=== PATIENT | male | born 1970 | race Caucasian/White ===

== ENCOUNTER 2018-09-19 22:48 | Emergency (ER) | payer OTHER ==
[~2018-09-19] VITALS: Ht 167.6 cm; Wt 114.3 kg
[~2018-09-19 22:48] MED LIST: IBUPROFEN600 MG ORAL
[2018-09-19] MEDS ORDERED: UNOBMED (22:54)
[2018-09-19 22:56] VITALS: BP 152/83
--- NOTE | 2018-09-19 23:09 | Emergency Room Report ---
History of Present Illness General Chief Complaint: Pain Source: Patient Present Illness HPI This is a 48-year-old male with history diabetes high blood pressure. He presents with chief complaint of left foot pain. Onset was started for 2 days now. It was walking and stepped on an unknown even pavement. He turned his foot. Since then his been hurting. Worse with walking. Better with rest and elevation. Did not take anything for. No nausea no vomiting but no fever or chills. Pain is 8 out of 10. No radiation. Allergies: Coded Allergies: No Known Allergies (Unverified , 09/19/18) Patient History Past Medical History: see triage record, old chart reviewed, DM, HTN Past Surgical History: other Pertinent Family History: none Social History: Denies: smoking Immunizations: other Reviewed Nursing Documentation: PMH: Agreed; PSxH: Agreed Nursing Documentation-PMH Past Medical History: No Stated History Hx Cardiac Problems: Yes - HX OF HEART ATTACK X 2 Hx Hypertension: Yes Hx Asthma: Yes Hx COPD: No - BRONCHITIS Hx Diabetes: Yes Review of Systems Eye: Denies: eye pain, blurred vision ENT: Denies: ear pain, nose congestion, throat swelling Respiratory: Denies: cough, shortness of breath Cardiovascular: Denies: chest pain, palpitations Gastrointestinal: Denies: abdominal pain, diarrhea, nausea, vomiting Musculoskeletal: Reports: joint pain; Denies: back pain Skin: Denies: rash Neurological: Denies: headache, numbness Endocrine: Denies: increased thirst, increased urine Hematologic/Lymphatic: Denies: easy bruising All Other Systems: negative except mentioned in HPI Physical Exam Vital Signs Date Time Temp Pulse Resp B/P (MAP) Pulse Ox O2 Delivery O2 Flow Rate FiO2 09/19/18 22:50 97.9 100 16 152/83 94 Room Air vitals normal except for high blood pressure Sp02 EP Interpretation: reviewed, normal General Appearance: well appearing, no apparent distress, alert Head: normocephalic, atraumatic Eyes: bilateral eye PERRL, bilateral eye EOMI ENT: hearing grossly normal, normal pharynx Neck: full range of motion, supple, no meningismus Respiratory: chest non-tender, lungs clear, normal breath sounds Cardiovascular #1: regular rate, rhythm, no murmur Gastrointestinal: normal bowel sounds, non tender, no mass, no organomegaly, no bruit, non-distended Musculoskeletal: back normal, normal range of motion, tender - Tenderness to the base of left fifth metatarsal. Pulses normal Psychiatric: mood/affect normal Skin: warm/dry Medical Decision Making Diagnostic Impression: Primary Impression: Sprain of foot, left Qualified Codes: S93.602A - Unspecified sprain of left foot, initial encounter ER Course Patient presents with injury to left foot. No fracture or dislocation. We'll discharge home. Other X-Ray Diagnostic Results Other X-Ray Diagnostic Results : X-Ray ordered: X-rays left foot # of Views/Limited Vs Complete: 3 View Indication: Pain EP Interpretation: Yes Interpretation: no dislocation, no soft tissue swelling, no fractures Impression: No acute disease Electronically Signed by: Lupillo Walker MD Last Vital Signs Date Time Temp Pulse Resp B/P (MAP) Pulse Ox O2 Delivery O2 Flow Rate FiO2 09/19/18 22:50 97.9 100 16 152/83 94 Room Air Status: improved Disposition: HOME, SELF-CARE Condition: Stable Scripts Ibuprofen* (MOTRIN*) 600 Mg Tablet 600 MG ORAL THREE TIMES A DAY, #30 TAB 0 Refills Prov: Lupillo Walker MD 09/19/18 Additional Instructions: Follow-up with your doctor in 7 days. Elevate foot. Ice pack to the area. Return if worse. Lupillo Walker MD Sep 19, 2018 23:08
[2018-09-19] MEDS ORDERED: IBUPROFEN600 MG ORAL (23:49)
[2018-09-20 00:22] VITALS: BP 151/82
--- NOTE | 2018-09-20 11:24 | Diagnostic Imaging Report ---
. Indication: Pain status post injury Technique: XRAY Foot Complete L Comparison: None Findings: Bone mineralization within normal limits. There is no evidence of acute fracture or dislocation. Lisfranc alignment of the foot is maintained. A well-corticated ossific density projects adjacent to the lateral cuneiform most likely representing a accessory ossicle. No radiopaque foreign body identified. Impression: No evidence of acute fracture or dislocation.
== END 2018-09-20 00:38 | disposition home or self-care (01) ==
LOC: EMR 23:18
DX: S93.602A Unspecified sprain of left foot, initial encounter (principal); X58.XXXA Exposure to other specified factors, initial encounter; Y92.9 Unspecified place or not applicable; I10 Essential (primary) hypertension; I25.2 Old myocardial infarction; E11.9 Type 2 diabetes mellitus without complications
CPT/HCPCS: 99283

== ENCOUNTER 2018-12-17 16:46 | Emergency (ER) | payer SELFPAY ==
[~2018-12-17] VITALS: Ht 167.6 cm; Wt 110.7 kg
[~2018-12-17 16:46] MED LIST changes: +UNOBMED
[2018-12-17] MEDS ORDERED: METOPROLOL TART25 MG ORAL (16:53)
[2018-12-17] MEDS ORDERED: FUROSEMIDE20 M1 ORAL (16:53)
[2018-12-17] MEDS ORDERED: METFORMIN ER G500 MG PO (16:53)
--- NOTE | 2018-12-17 17:18 | Emergency Room Report ---
History of Present Illness General Chief Complaint: Wound Recheck/Suture Removal Source: Patient Present Illness HPI 48-year-old male presents to the emergency department requesting suture removal of sutures that were placed in the right thumb 2 weeks ago. Patient denies erythema, pain, discharge, bleeding. Patient states he is up-to-date with his vaccinations. Patient denies any other medical complaints or symptoms at this time Allergies: Coded Allergies: No Known Allergies (Unverified , 12/17/18) Patient History Past Medical History: see triage record Past Surgical History: none Pertinent Family History: none Immunizations: UTD Reviewed Nursing Documentation: PMH: Agreed; PSxH: Agreed Nursing Documentation-PMH Past Medical History: No History, Except For Hx Cardiac Problems: Yes - HX OF HEART ATTACK X 2 Hx Hypertension: Yes Hx Asthma: Yes Hx COPD: No - BRONCHITIS Hx Diabetes: Yes Review of Systems All Other Systems: negative except mentioned in HPI Physical Exam Vital Signs Date Time Temp Pulse Resp B/P (MAP) Pulse Ox O2 Delivery O2 Flow Rate FiO2 12/17/18 16:50 99.0 99 16 112/73 93 Room Air Sp02 EP Interpretation: reviewed, normal General Appearance: no apparent distress, alert, GCS 15, non-toxic Head: normocephalic, atraumatic Eyes: bilateral eye normal inspection, bilateral eye PERRL ENT: hearing grossly normal, normal voice Neck: full range of motion Respiratory: lungs clear, normal breath sounds, speaking full sentences Cardiovascular #1: regular rate, rhythm, normal capillary refill Musculoskeletal: back normal, gait/station normal, normal range of motion, non- tender Neurologic: alert, oriented x3, responsive, motor strength/tone normal, sensory intact, speech normal, grossly normal Psychiatric: judgement/insight normal Skin: normal color, no rash, warm/dry, well hydrated, wd healing/no infection noted - Right thumb Lymphatic: no adenopathy Medical Decision Making PA Attestation Dr. giraldo is my supervising Physician whom patient management has been discussed with. Diagnostic Impression: Primary Impression: Encounter for removal of sutures ER Course 48-year-old male presents to the emergency department requesting suture removal of sutures that were placed in the right thumb 2 weeks ago. Patient denies erythema, pain, discharge, bleeding. Patient states he is up-to-date with his vaccinations. Patient denies any other medical complaints or symptoms at this time Ddx considered but are not limited to laceration, tendon injury, cellulitis, dehiscence. Vital signs: are WNL, pt. is afebrile H&PE are most consistent with: healed laceration of the RIGHT THUMB ORDERS: none required at this time, the diagnosis is clinical ED INTERVENTIONS: - 5 Sutures removed. DISCHARGE: At this time pt. is stable for d/c to home. Will provide printed patient care instructions, and any necessary prescriptions. Care plan and follow up instructions have been discussed with the patient prior to discharge. Last Vital Signs Date Time Temp Pulse Resp B/P (MAP) Pulse Ox O2 Delivery O2 Flow Rate FiO2 12/17/18 16:50 99.0 99 16 112/73 93 Room Air Status: improved Disposition: HOME, SELF-CARE Condition: Stable Patient Instructions: Suture Removal, Care After Additional Instructions: Take any previously prescribed medications as directed. Follow up with a Primary Care Provider in 3-5 days, even if your symptoms have resolved. --Please review list of primary care clinics, if you do not already have a primary care provider Return sooner to ED if new symptoms occur, or current symptoms become worse. - Please note that this Emergency Department Report was dictated using [email or web address] law clerk technology software, occasionally this can lead to erroneous entry secondary to interpretation by the dictation equipment. Gertrude Etienne Dec 17, 2018 17:18
[2018-12-17 19:21] VITALS: BP 112/73
--- NOTE | 2018-12-17 19:21 | NUR ---
ED Nurse Note:pt. was cleared for d/c by ER provider, he received d/c instructions and left ER with steady gait
[2018-12-17 19:23] VITALS: BP 112/73
== END 2018-12-17 17:30 | disposition home or self-care (01) ==
LOC: EMR 17:28
DX: Z48.02 Encounter for removal of sutures (principal); I10 Essential (primary) hypertension; J45.909 Unspecified asthma, uncomplicated; E11.9 Type 2 diabetes mellitus without complications; I25.2 Old myocardial infarction
CPT/HCPCS: 99281